=== PATIENT | female | born 2000 | race Caucasian/White ===

== ENCOUNTER → 2022-05-05 12:33 | Outpatient (CLI) | payer OTHER, SELFPAY ==
[2022-05-05 18:47] LABS: Appearance Urine UA CLEAR; Bilirubin Urine UA NEGATIVE (NEGATIVE); Color Urine UA YELLOW; Glucose Urine UA NEGATIVE (Negative); Ketones Urine UA NEGATIVE (NEGATIVE); Leukocyte Esterase Urine UA 1+ (NEGATIVE); Nitrite Urine UA NEGATIVE (Negative); Occult Blood Urine UA NEGATIVE (Negative); Protein Urine UA NEGATIVE (Negative); Specific Gravity Urine UA <=1.005 (1.000-1.035); Urobilinogen Urine UA 0.2 E.U./dL (0.2)
[2022-05-05 19:06] LABS: Bacteria Urine None Seen; Culture Indicated Urine Cult Not Indicated; RBC Urine None Seen (0-5/HPF); Squamous Epithelial Cell Urine 1-5 /HPF (0-5/HPF); WBC Urine 0-1/HPF (0-5/HPF)
== END ==
PROVIDERS: PCP Physician Assistant; Visit Provider Obstetrics & Gynecology
DX: Z34.81 Encounter for supervision of other normal pregnancy, first trimester (principal); Z3A.13 13 weeks gestation of pregnancy
CPT/HCPCS: 81003; 81015; 87086

== ENCOUNTER → 2022-05-05 12:38 | Outpatient (CLI) | payer OTHER, SELFPAY ==
[2022-05-05 13:32] LABS: Add Manual Diff / Slide Review NO; Basophils Absolute Auto 0 /uL (0-100); Basophils Percent Auto 0.2 % (0-2); Eosinophils Absolute Auto 0 /uL (0-450); Eosinophils Percent Auto 0.4 % (2-4); Hematocrit 40.9 % (36-46); Hemoglobin 14.3 g/dL (12.0-16.0); Lymphocytes Absolute Auto 1300 /uL (1100-4500); Lymphocytes Percent Auto 15.8 % (25-40); Mean Corpuscular Hemoglobin 31.8 PG (26-34); Mean Corpuscular Volume 91.1 fL (80-100); Monocytes Absolute Auto 400 /uL (0-900); Monocytes Percent Auto 4.9 % (3-14); Neutrophils Absolute Auto 6700 /uL (1500-7000); Neutrophils Percent Auto 78.7 % (50-75); Platelet Count 279 X10^3/uL (150-400); Red Blood Cell Count 4.49 X10^6/uL (4.0-5.2); Red Cell Distribution Width 12.6 % (11.6-14.8); White Blood Cell Count 8.5 X10^3/uL (4.5-11.0)
[2022-05-05 17:26] LABS: HIV 1 & 2 Ab/Ag 4th Gen Combo NEGATIVE (NEGATIVE); Hep C Virus Ab w/Reflex Quant NEGATIVE s/c (NEGATIVE); Hepatitis B Surface Antigen NEGATIVE s/c (NEGATIVE); Rubella Antibody IgG 41.7 IU/mL (>15)
[2022-05-06 07:03] LABS: RPR Screen Non Reactive (Non Reactive)
[2022-05-06 07:08] LABS: Varicella IgG Antibody 378 index (Immune >165)
== END ==
PROVIDERS: PCP Physician Assistant; Referring Provider Obstetrics & Gynecology; Visit Provider Obstetrics & Gynecology
DX: Z34.81 Encounter for supervision of other normal pregnancy, first trimester (principal); Z3A.13 13 weeks gestation of pregnancy
CPT/HCPCS: 36415; 80055; 81003; 81015; 86787; 86803; 86850; 86900; 86901; 87086; 87389

== ENCOUNTER → 2022-05-26 10:08 | Outpatient (CLI) | payer OTHER, SELFPAY ==
[2022-05-30 12:09] LABS: AFP Value 20.1 ng/mL (.); Insulin Dep Diabetes No (.); OSBR Risk 1IN 10000 (.); Results Report (.); Test Results *Screen Negative* (.)
== END ==
PROVIDERS: PCP Physician Assistant; Referring Provider Obstetrics & Gynecology; Visit Provider Obstetrics & Gynecology
DX: Z34.82 Encounter for supervision of other normal pregnancy, second trimester (principal); Z3A.16 16 weeks gestation of pregnancy
CPT/HCPCS: 36415; 82105

== ENCOUNTER → 2022-06-23 09:35 | Outpatient (CLI) | payer OTHER, SELFPAY ==
[2022-06-23 18:27] LABS: Urine N gonorrhoeae NOT DETECTED
[2022-06-23 18:30] LABS: Urine Chlamydia NOT DETECTED
== END ==
PROVIDERS: PCP Physician Assistant; Visit Provider Obstetrics & Gynecology
DX: Z34.82 Encounter for supervision of other normal pregnancy, second trimester (principal); Z3A.20 20 weeks gestation of pregnancy
CPT/HCPCS: 87491; 87591

== ENCOUNTER → 2022-06-23 12:12 | Outpatient (CLI) | payer OTHER, SELFPAY ==
--- NOTE | 2022-06-23 12:13 | DI.US.S_ITS ---
PROCEDURE: US OB >= 14 WEEKS FETUS INDICATIONS: ANATOMY OUTSIDE/PRIOR DATING DATA: Last menstrual period (LMP): 02/03/2022. LMP-based estimated date of delivery (ROD): 11/10/2022. First dating scan (date and location): 06/23/2022. Estimated date of delivery (ROD) from first dating scan: 11/14/22.. The calculations are made using the LMP ROD of 11/10/2022. TECHNIQUE: Real-time scanning was performed of the fetus, with image documentation and biometric measurements. COMPARISON: None. FINDINGS: General: A single living intrauterine gestation is present. Presentation: Vertex. Placenta: Placental position is anterior , without previa. Amniotic fluid index: 16.7 cm, normal range is 5-24 cm. Single deepest vertical pocket is 4.8 cm. heart rate: 143 beats per minute. Maternal cervical canal: 3.1 cm long. Normal lower limit is 2.5 cm. biometrics: Biparietal diameter: 4.3 cm. 19 weeks 0 days. Head circumference: 16.7 cm. 19 weeks 3 days. Abdominal circumference: 14.4 cm. 19 weeks 5 days. Femur length: 3.0 cm. 19 weeks 2 days. Clinically estimated gestational age: 20 weeks 0 days. Composite gestational age from present scan: 19 weeks 3 days. Estimated weight and percentile: 296 g. 28th percentile. Anatomic survey: Neuro: Ventricles are non-dilated at less than 10 mm. Cisterna magna is normal at 3-11 mm. Cerebellum is normal in size and morphology. Nuchal skin fold: Normal at less than 6 mm between 14-21 weeks gestational age. Face: Nose and lips, facial profile are normal. Spine: No evidence for spina bifida. Heart: 4-chambered heart is present, with normal ventricular outflow tracts. Diaphragm: Diaphragm is intact. Stomach: Left-sided stomach is present. Kidneys: No hydronephrosis. Normal is less than 5 mm in 2nd trimester, less than 7 mm in 3rd trimester. Cord: 3-vessel cord has orthotopic insertion. Bladder: Normal in size. Extremities: All 4 extremities identified. IMPRESSION: 1. Single living intrauterine with an estimated delivery date of 11/10/2022 by LMP. 2. facial profile is not seen due to lie, otherwise visualized anatomy is normal. We strive to produce accurate, complete, and clear reports of imaging services. To assist us in improving patient care, this report was composed using standard report templates and voice recognition software. Therefore, it may contain abnormal punctuation, insertions and/or omissions. Occasional wrong-word or sound-alike substitutions may occur. Though we review the report and make efforts to correct it, we do recommend that the report be read carefully in proper context to recognize any text inaccuracies. Dictated by: Sorin Spann M.D. on 06/23/2022 at 15:09 Approved by: Sorin Spann M.D. on 06/23/2022 at 15:13
== END ==
PROVIDERS: PCP Physician Assistant; Referring Provider Obstetrics & Gynecology; Visit Provider Obstetrics & Gynecology
DX: Z34.82 Encounter for supervision of other normal pregnancy, second trimester (principal); Z3A.19 19 weeks gestation of pregnancy
CPT/HCPCS: 76811; 87491; 87591

== ENCOUNTER → 2022-07-21 09:20 | Outpatient (CLI) | payer OTHER, SELFPAY ==
[2022-07-21 10:33] LABS: Add Manual Diff / Slide Review NO; Basophils Absolute Auto 0 /uL (0-100); Basophils Percent Auto 0.5 % (0-2); Eosinophils Absolute Auto 100 /uL (0-450); Eosinophils Percent Auto 1.1 % (2-4); Hematocrit 35.4 % (36-46); Hemoglobin 12.4 g/dL (12.0-16.0); Lymphocytes Absolute Auto 1500 /uL (1100-4500); Lymphocytes Percent Auto 16.2 % (25-40); Mean Corpuscular HGB Conc 34.9 % (30-36); Mean Corpuscular Hemoglobin 32.9 PG (26-34); Monocytes Absolute Auto 600 /uL (0-900); Monocytes Percent Auto 6.6 % (3-14); Neutrophils Absolute Auto 7200 /uL (1500-7000); Neutrophils Percent Auto 75.6 % (50-75); Platelet Count 274 X10^3/uL (150-400); Red Blood Cell Count 3.77 X10^6/uL (4.0-5.2); Red Cell Distribution Width 13.2 % (11.6-14.8); White Blood Cell Count 9.5 X10^3/uL (4.5-11.0)
[2022-07-21 10:55] LABS: Alanine Aminotransferase 16 IU/L (<35); Aspartate Aminotransferase 19 IU/L (14-36); BUN Creatinine Ratio 20.7 (6-22); Blood Urea Nitrogen 12 mg/dL (7-17); Estimated Glomerular Filt Rate > 60 mL/min (>60); Uric Acid 4.6 mg/dL (2.5-6.2)
== END ==
PROVIDERS: PCP Physician Assistant; Referring Provider Specialist; Visit Provider Specialist
DX: O16.2 Unspecified maternal hypertension, second trimester (principal)
CPT/HCPCS: 82565; 84450; 84460; 84520; 84550; 85025

== ENCOUNTER → 2022-07-28 12:09 | Outpatient (CLI) | payer OTHER, SELFPAY ==
[2022-07-28 13:57] LABS: GTT (PREG) 1 Hour PP 50gm Dose 107 mg/dL (76-139)
== END ==
PROVIDERS: PCP Physician Assistant; Referring Provider Specialist; Visit Provider Specialist
DX: Z34.82 Encounter for supervision of other normal pregnancy, second trimester (principal); Z3A.26 26 weeks gestation of pregnancy
CPT/HCPCS: 36415; 82950

== ENCOUNTER 2022-08-18 16:52 | Outpatient (CLI) | payer OTHER, SELFPAY ==
--- NOTE | 2022-08-18 17:41 | DI.US.S_ITS ---
PROCEDURE: US TRANSVAGINAL INDICATIONS: us cvx TECHNIQUE: Real-time scanning was performed of the pelvic organs, with image documentation. Additional endovaginal scanning was necessary due to incomplete visualization of the adnexal and endometrial structures by transabdominal scanning. COMPARISON: [facility], US, US OB >= 14 WEEKS FETUS, 06/23/2022, 12:24. FINDINGS: Limited ultrasound examination of pelvis shows cervix measures 2.7-2.8 cm in length and is closed. No funneling is seen. IMPRESSION: Limited evaluation of cervix shows normal cervical length and is closed. No funneling is seen. We strive to produce accurate, complete, and clear reports of imaging services. To assist us in improving patient care, this report was composed using standard report templates and voice recognition software. Therefore, it may contain abnormal punctuation, insertions and/or omissions. Occasional wrong-word or sound-alike substitutions may occur. Though we review the report and make efforts to correct it, we do recommend that the report be read carefully in proper context to recognize any text inaccuracies. Dictated by: Sacha Locke M.D. on 08/19/2022 at 10:14 Approved by: Sacha Locke M.D. on 08/19/2022 at 10:16
[2022-08-18 18:33] LABS: Bilirubin Urine UA NEGATIVE (NEGATIVE); Color Urine UA YELLOW; Glucose Urine UA NEGATIVE (Negative); Ketones Urine UA NEGATIVE (NEGATIVE); Leukocyte Esterase Urine UA 3+ (NEGATIVE); Nitrite Urine UA NEGATIVE (Negative); Occult Blood Urine UA NEGATIVE (Negative); Protein Urine UA NEGATIVE (Negative); Urobilinogen Urine UA 0.2 E.U./dL (0.2)
[2022-08-18 18:36] LABS: Appearance Urine UA Cloudy; pH Urine UA 6.5 (4.5-8.0)
--- NOTE | 2022-08-18 18:42 | P.TNLD_ITS ---
Visit Information Visit Information Date of evaluation: 08/18/22 Primary OB Provider: Tito Gardiner On-call OB Provider: Nellie Ríos Reason for Evaluation: Yes other Comments/Additional reasons for admission: 22YO @ 28wks 0days by LMP concordant w/ early US presents for evaluation of cramping x 2 weeks and possible leaking for fluid. +FM. No vaginal bleeding, abnormal discharge, pain, irritation or foul odor. Routine care w/ for which she reports she is on light bed rest for labile BPs. Takes a LDASA for Hx of gestational hypertension. Otherwise no complications. 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 Ovarian cyst (~2016) Panic attack PTSD (post-traumatic stress disorder) (~2015) Surgical History Anesthesia H/O dilation and curettage History of tonsillectomy and adenoidectomy (~2013) [place] teeth extracted Family History Mother Pre-invasive breast cancer Family/Other Breast cancer Grandmother Breast cancer Grandfather Throat cancer Granddaughter Colon cancer Grandfather Hypertension Hyperlipidemia Heart disease Drug abuse Social History marital status: number of children: 1 household members: spouse and children lives independently: Yes caregiver/support person: Yes housing: house pets and animals: No education level: college (some college) occupational status: unemployed current occupational exposures/hazards: No special willis needs: No travel history: recent (Domestic only) seatbelt use: always water heater temp set < 120 deg: Yes working smoke detector in home: Yes fire extinguisher in home: Yes firearms in home: No do you feel safe at home: Yes Smoking Status: Former smoker (cigarettes x3 years, vaped 2021 (quit October, then nicotine packets until and quit those)) Tobacco: How many years used: 4 second hand exposure: No alcohol intake: former (1-2/week when not ) substance use type: does not use during the past year weight has: remained stable well-balanced diet: rarely or never daily servings fruits/ve-1 caffeine: No Type(s) of exercise: none Review of Systems Review of Systems ROS: Yes All systems reviewed with the patient and are negative except as otherwise documented Exam Vital Signs (past 8 hours): see above Const General: cooperative, healthy appearing, comfortable and well developed Nutritional Appearance: average body habitus Orientation: alert and oriented x3 Resp Effort & Inspection: normal respiratory effort and able to speak in complete sentences Cardio Rate: regular rate Rhythm: regular rhythm Objective Imaging OB US >14wks Limited: My impression: CL 2.8-2.9cm, no funneling- reported by US tech ( CL 3.1cm @ 20wks) Labs Labs: Laboratory Results - last 24 hr 08/18/22 17:00 Urine Color Yellow Urine Appearance Cloudy Urine pH 6.5 Ur Specific Gordon 1.010 Urine Protein Negative Urine Glucose (UA) Negative Urine Ketones Negative Urine Occult Blood Negative Urine Nitrate Negative Urine Bilirubin Negative Urine Urobilinogen 0.2 Ur Leukocyte Esterase 3+ H Evaluation Evaluation Baseline heart rate: 145 Variability: Moderate (11-25) monitor accelerations: Present Monitor Decelerations: Absent Contraction Frequency (minutes): 0 Uterine Contraction Intensity: Mild Non-invasive Membranes Rupture Test: negative Diagnosis, Plan/Disposition Final Diagnosis (1) False labor before 37 completed weeks of gestation: Status: Acute Plan/Disposition Plan: Reassurance of no labor or PPROM. Encouraged home comfort measures. labor precautions reviewed. Follow-up with next week as previously scheduled. OB Disposition: home
[2022-08-18 18:48] LABS: RBC Urine None Seen (0-5/HPF); WBC Urine 10-30/HPF (0-5/HPF)
[2022-08-18 18:49] LABS: Bacteria Urine Moderate (10-30); Culture Indicated Urine Specimen Cultured; Squamous Epithelial Cell Urine 10-30 /HPF (0-5/HPF)
== END 2022-08-18 18:30 | disposition home or self-care (01) ==
LOC: LABOR 17:13 → OB 08-22 15:51
PROVIDERS: Nurse Practitioner Obstetrics & Gynecology; PCP Physician Assistant; Referring Provider Obstetrics & Gynecology; Visit Provider Obstetrics & Gynecology
DX: Z03.71 Encounter for suspected problem with amniotic cavity and membrane ruled out (principal); O47.03 False labor before 37 completed weeks of gestation, third trimester; Z3A.28 28 weeks gestation of pregnancy
CPT/HCPCS: 59025; 76830; 81003; 81015; 84112; 87086; G0378; G0379

== ENCOUNTER → 2022-09-15 09:44 | Outpatient (CLI) | payer OTHER, SELFPAY | PROVIDERS: PCP Physician Assistant; Visit Provider Obstetrics & Gynecology | DX: Z34.83 Encounter for supervision of other normal pregnancy, third trimester; Z3A.32 32 weeks gestation of pregnancy | CPT/HCPCS: 87086 ==

== ENCOUNTER 2022-09-23 15:24 | Outpatient (CLI) | payer OTHER, SELFPAY ==
--- NOTE | 2022-09-23 16:48 | PM.OBTRLD ---
Visit Information Visit Information Date of evaluation: 09/23/22 Primary OB Provider: Tito Gardiner On-call OB Provider: Nuvia Sidhu Comments/Additional reasons for admission: 22yo at 33w1d here due to cramping and concerns for ROM. The pt reports that she has had watery diarrhea for the past several days. She has had intermittent abdominal cramping for the past 2 days, that radiates to her back and then extends up her back to her shoulders. Earlier today, she had a sharper, diffuse abdominal pain. The diarrhea has been persistent. She denies any nausea or vomiting. She continues to eat and stay hydrated. She does report that her BMs are more solid today. She denies any fevers or chills. She has had no sick exposures, and her child is not in daycare or in school. She has not been on any antibiotics recently. Earlier today, she felt a gush between her legs. She has not continued to leak significantly since then. She does state she has had increased discharge recently in general, that can be clumping at times. She denies any vaginal irritation, dysuria. 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 Ovarian cyst (~2016) Panic attack PTSD (post-traumatic stress disorder) (~2015) Surgical History Anesthesia H/O dilation and curettage History of tonsillectomy and adenoidectomy (~2013) [place] teeth extracted Family History Mother Pre-invasive breast cancer Family/Other Breast cancer Grandmother Breast cancer Grandfather Throat cancer Granddaughter Colon cancer Grandfather Hypertension Hyperlipidemia Heart disease Drug abuse Social History marital status: number of children: 1 household members: spouse and children lives independently: Yes caregiver/support person: Yes housing: house pets and animals: No education level: college (some college) occupational status: unemployed current occupational exposures/hazards: No special willis needs: No travel history: recent (Domestic only) seatbelt use: always water heater temp set < 120 deg: Yes working smoke detector in home: Yes fire extinguisher in home: Yes firearms in home: No do you feel safe at home: Yes Smoking Status: Former smoker (cigarettes x3 years, vaped 2021 (quit October, then nicotine packets until and quit those)) Tobacco: How many years used: 4 second hand exposure: No alcohol intake: former (1-2/week when not ) substance use type: does not use during the past year weight has: remained stable well-balanced diet: rarely or never daily servings fruits/ve-1 caffeine: No Type(s) of exercise: none Evaluation Evaluation Baseline heart rate: 130 Variability: Moderate (11-25) monitor accelerations: Present Monitor Decelerations: Absent Category of Tracing: Reactive Diagnosis, Plan/Disposition Final Diagnosis (1) Diarrhea: Status: Acute Plan/Disposition Plan: 22yo at 33w1d here due to cramping and with concerns for ROM, in the setting of recent diarrhea. Amniosure negative. U/A without evidence infection. Wet mount negative. Suspect cramping from mild dehydration from diarrhea. No contractions seen on monitoring here, and pt able to tolerate copious water PO while in L&D. Stools are already beginning to form, suspect viral gastroenteritis. Discussed supportive care at home. Pt will contact the office if stools not continuing to solidify. OB Disposition: home
[2022-09-23 17:19] LABS: Appearance Urine UA CLEAR; Bilirubin Urine UA NEGATIVE (NEGATIVE); Color Urine UA YELLOW; Glucose Urine UA NEGATIVE (Negative); Ketones Urine UA NEGATIVE (NEGATIVE); Leukocyte Esterase Urine UA 2+ (NEGATIVE); Nitrite Urine UA NEGATIVE (Negative); Occult Blood Urine UA NEGATIVE (Negative); Protein Urine UA NEGATIVE (Negative); Specific Gravity Urine UA 1.015 (1.000-1.035); Urobilinogen Urine UA 0.2 E.U./dL (0.2)
[2022-09-23 17:26] LABS: Bacteria Urine Few (2-10); Culture Indicated Urine Specimen Cultured; RBC Urine None Seen (0-5/HPF); Squamous Epithelial Cell Urine 1-5 /HPF (0-5/HPF); WBC Urine 5-10/HPF (0-5/HPF)
== END 2022-09-23 17:25 | disposition home or self-care (01) ==
LOC: LABOR 16:52 → OB 09-26 11:22
PROVIDERS: Family Medicine; PCP Physician Assistant; Referring Provider Obstetrics & Gynecology; Visit Provider Obstetrics & Gynecology
DX: Z03.71 Encounter for suspected problem with amniotic cavity and membrane ruled out (principal); O26.893 Other specified pregnancy related conditions, third trimester; R19.7 Diarrhea, unspecified; Z3A.33 33 weeks gestation of pregnancy
CPT/HCPCS: 59025; 81001; 84112; 87086; 87210; G0378; G0379

== ENCOUNTER → 2022-10-14 12:12 | Outpatient (CLI) | payer OTHER, SELFPAY ==
[2022-10-15 11:10] LABS: Strep Grp B PCR NEG for Grp B Strep
== END ==
PROVIDERS: PCP Physician Assistant; Visit Provider Physician Assistant Medical
DX: Z34.83 Encounter for supervision of other normal pregnancy, third trimester (principal); Z3A.36 36 weeks gestation of pregnancy
CPT/HCPCS: 87653

== ENCOUNTER → 2022-10-19 09:24 | Outpatient (CLI) | payer OTHER, SELFPAY | PROVIDERS: PCP Physician Assistant; Visit Provider Obstetrics & Gynecology | DX: R82.90 Unspecified abnormal findings in urine (principal) | CPT/HCPCS: 87086 ==

== ENCOUNTER 2022-10-31 21:11 | Observation (INO) | payer OTHER, SELFPAY | END 2022-10-31 21:50 | disposition home or self-care (01) | LOC: LABOR 21:14 | PROVIDERS: Admitting Provider Family Medicine; PCP Physician Assistant; Referring Provider Family Medicine; Visit Provider Family Medicine | DX: O47.1 False labor at or after 37 completed weeks of gestation (principal); Z3A.38 38 weeks gestation of pregnancy | CPT/HCPCS: 59025; G0378; G0379 ==

== ENCOUNTER 2022-11-03 06:57 | Inpatient (IN) | payer OTHER, SELFPAY ==
[2022-11-03 08:15] VITALS: BP 119/60
[2022-11-03] MEDS: OXYTOCIN PREMIX 30 UNIT/500 ML PLAST..BAG IV (08:33)
[2022-11-03] MEDS: LACTATED RINGERS 1,000 ML 100 ML IV ×2 (08:33→11:25)
[2022-11-03 09:08] LABS: Add Manual Diff / Slide Review NO; Basophils Absolute Auto 100 /uL (0-100); Basophils Percent Auto 0.7 % (0-2); Eosinophils Absolute Auto 100 /uL (0-450); Eosinophils Percent Auto 1.1 % (2-4); Hemoglobin 12.6 g/dL (12.0-16.0); Lymphocytes Absolute Auto 1900 /uL (1100-4500); Lymphocytes Percent Auto 23.9 % (25-40); Mean Corpuscular HGB Conc 34.9 % (30-36); Mean Corpuscular Volume 94.8 fL (80-100); Monocytes Absolute Auto 700 /uL (0-900); Monocytes Percent Auto 8.6 % (3-14); Neutrophils Absolute Auto 5100 /uL (1500-7000); Neutrophils Percent Auto 65.7 % (50-75); Platelet Count 209 X10^3/uL (150-400); Red Cell Distribution Width 14.3 % (11.6-14.8); White Blood Cell Count 7.8 X10^3/uL (4.5-11.0)
--- NOTE | 2022-11-03 09:16 | P.HPOB_ITS ---
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 Although she had gestational hypertension with her 1st , this has been uneventful with solid dating and appropriate milestones throughout. She has a history of oral HSV and has been taking acyclovir 400 mg t.i.d. since 36 weeks. She is GBS negative. Indications Indication for induction OB: other (Social indications, spousal availability) History of Present care: good care Dating criteria: LMP confirmed by 1st trimester US Ultrasounds: normal 1st trimester US and normal mid trimester US Obstetrical complications: none Medical complications: none Preadmission Labs Blood type: A (+) positive -: Antibody screen: negative, GBS status: negative, HBsAG: negative, HIV: negative and RPR/VDLR: negative -: Chlamydia screen: not detected and Gonorrhea screen: not detected -: Rubella: immune and Varicella: immune HCT: 36.0 HCAB: negative PAP: Normal Quad screen: Normal (AFP testing negative) Cell-free DNA: Low risk female infant Fasting blood glucose: 107 Prior (ies) History: x 1 Evaluation Evaluation Baseline heart rate: 135 Variability: Moderate (11-25) monitor accelerations: Present Monitor Decelerations: Absent Contraction Frequency (minutes): 5 Uterine Contraction Intensity: Mild Category of Tracing: Reactive Status: Category l Dilation (cm): 3 Effacement (%): 80 Dilation: 3-4 cm Effacement: >/=80% station: -1 Position of cervix: mid Consistency: soft Quintanilla score: 10 Non-invasive Membranes Rupture Test: negative Comments: AROM performed, clear fluid, 0925 [facility] Medical History ADHD Ankle pain (~2011) Anxiety (~2013) Bipolar disorder Depression (~2013) Frequent UTI (~2013) HSV-1 infection Migraine without aura (~2020) 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 Ovarian cyst (~2016) Panic attack PTSD (post-traumatic stress disorder) (~2015) Surgical History Anesthesia H/O dilation and curettage History of tonsillectomy and adenoidectomy (~2013) [place] teeth extracted Family History Mother Pre-invasive breast cancer Family/Other Breast cancer Grandmother Breast cancer Grandfather Throat cancer Granddaughter Colon cancer Grandfather Hypertension Hyperlipidemia Heart disease Drug abuse Social History marital status: number of children: 1 household members: spouse and children lives independently: Yes caregiver/support person: Yes housing: house pets and animals: No education level: college (some college) occupational status: unemployed current occupational exposures/hazards: No special willis needs: No travel history: recent (Domestic only) seatbelt use: always water heater temp set < 120 deg: Yes working smoke detector in home: Yes fire extinguisher in home: Yes firearms in home: No do you feel safe at home: Yes Smoking Status: Never smoker Tobacco: How many years used: 4 second hand exposure: No alcohol intake: former (1-2/week when not ) substance use type: does not use during the past year weight has: remained stable well-balanced diet: rarely or never daily servings fruits/ve-1 caffeine: No Type(s) of exercise: none Meds Home Medications and Allergies Home Medications Medication Instructions Recorded Confirmed Type amitriptyline 25 mg tablet 25 mg PO DAILY 04/06/22 11/03/22 History folic acid 400 mcg tablet 0.4 mg PO DAILY 04/06/22 11/03/22 History prenat.vits,roberto,qpg-sbun-hsiwp 1 tab PO DAILY 04/06/22 11/03/22 History promethazine 25 mg tablet 25 mg PO TID PRN migraines 04/06/22 11/03/22 History sumatriptan succinate 50 mg tablet See Rx Instructions PO .COMPLEX 04/19/22 11/03/22 Rx #20 tabs metronidazole 0.75 % (37.5 mg/5 1 appful vaginal BEDTIME 5 days 07/28/22 11/03/22 Rx gram) vaginal gel #70 grams hydroxyzine HCl 50 mg tablet 50 mg PO BID PRN anxiety #30 tabs 08/18/22 11/03/22 Rx omeprazole 40 mg capsule,delayed 40 mg PO DAILY #30 caps 08/18/22 11/03/22 Rx release sertraline 50 mg tablet (Zoloft) 50 mg PO DAILY #30 tabs 08/18/22 11/03/22 Rx acyclovir 400 mg tablet 400 mg PO TID 5 days #15 tabs 09/07/22 11/03/22 Rx nifedipine 60 mg tablet,extended 60 mg PO DAILY #30 tabs 09/29/22 11/03/22 Rx release oxycodone-acetaminophen 5 mg-325 1 tab PO Q4-6H PRN pain #20 tabs 09/29/22 11/03/22 Rx mg tablet (Percocet) Allergies Allergy/AdvReac Type Severity Reaction Status Date / Time No Known Drug Allergies Allergy Verified 11/03/22 09:42 Review of Systems Review of Systems Narrative: Problem-specific ROS positives included in HPI OB Exam Vital signs Blood Pressure: 124/68 Pulse Rate: 102 Temperature: 97.9 F HENMT Head: normal to inspection, normocephalic and atraumatic Eyes General: appearance normal, both eyes and all related structures Resp Effort & Inspection: normal respiratory effort and able to speak in complete sentences Auscultation: clear to auscultation bilaterally Cardio Rate: regular rate Rhythm: regular rhythm Heart Sounds: S1 normal, S2 normal and no murmurs Extremities Lower extremity: Yes normal to inspection GI Inspection: normal to inspection Palpation: Yes soft and Yes no hepatosplenomegaly Uterus Location (Fundal Height): 38 Presentation: vertex Estimated Weight (lbs): 8 Objective Labs 11/03/22 07:45 Labs: Laboratory Results - last 24 hr 11/03/22 07:45 WBC 7.8 RBC 3.80 L Hgb 12.6 Hct 36.0 MCV 94.8 MCH 33.0 MCHC 34.9 RDW 14.3 Plt Count 209 Neut % (Auto) 65.7 Lymph % (Auto) 23.9 L [place] % (Auto) 8.6 Eos % (Auto) 1.1 L Baso % (Auto) 0.7 Neut # (Auto) 5100 Lymph # (Auto) 1900 [place] # (Auto) 700 Eos # (Auto) 100 Baso # (Auto) 100 Assessment and Plan Assessment and Plan Assessment and Plan narrative: ASSESSMENT 1. Intrauterine , 39+ 0 weeks gestational age 2. Elective induction for social indications 3. GBS negative status PLAN 1. Admit for AROM and induction 2. See admission orders
[2022-11-03] MEDS: BUPIVACAINE EPIDURAL (11:26)
[2022-11-03] MEDS: FENTANYL 2 MCG EPIDURAL (11:26)
--- NOTE | 2022-11-03 11:51 | PM.AN.REGBLK ---
Regional Block Pre-procedure PMH/ROS narrative: , induction of labor at 39 weeks. Denies previous anesthesia problems. Had SOCO w/ 1st child w/o problems. PMH anxiety, depression and states I have a straight neck , no symptoms, no paresthesia or motor deficits. PSH/Anesthesia history narrative: See above Exam narrative: MP I, tongue piercing x 1. Dentation good, intact. Negative other symtoms review. HRR, s1/s2, no murmur, lungs clear bilat. ASA Class: II Labs: Hct 36.0 % (36-46) 11/03/22 07:45 Plt Count 209 X10^3/uL (150-400) 11/03/22 07:45 Medications: Current Medications Generic Name Dose Route Start Last Admin Trade Name Freq PRN Reason Stop Dose Admin Acyclovir 400 mg 11/03/22 10:15 Acyclovir 400 Mg Tablet PO TID DENISE Carboprost Tromethamine 250 mcg 11/03/22 08:13 Carboprost 250 Mcg/Ml Ampul IM Q90M PRN Bleeding Ephedrine Sulfate 5 mg 11/03/22 11:42 Ephedrine 50 Mg/Ml Vial IV PRN PRN Blood Pressure - Low Fentanyl 50 mcg 11/03/22 08:13 Fentanyl 100 Mcg/2 Ml Inj IV Q1H PRN Pain, Moderate (4-6) Oxytocin/Lactated Ringer's 30 unit in 500 mls @ 2 mls/hr 11/03/22 08:15 11/03/22 08:33 Oxytocin Premix IV 2 milliunit/min TITRATE DENISE 2 mls/hr Administration Protocol 2 MILLIUNIT/MIN Oxytocin/Lactated Ringer's 30 unit in 500 mls @ 200 mls/hr 11/03/22 08:13 Oxytocin Premix IV CONT PRN Bleeding Protocol Tranexamic Acid 1,000 mg/ 100 mls @ 200 mls/hr 11/03/22 08:13 Sodium Chloride IV NOW PRN Bleeding Lactated Ringer's 1,000 mls @ 100 mls/hr 11/03/22 08:15 11/03/22 11:25 Lactated Ringers IV 100 mls/hr CONT DENISE Administration Lactated Ringer's 1,000 mls @ 100 mls/hr 11/03/22 11:45 Lactated Ringers IV CONT DENISE Lidocaine HCl 20 ml 11/03/22 08:13 Lidocaine 1% 20 Ml INJ INTRA-OP PRN Post Delivery Methylergonovine Maleate 0.2 mg 11/03/22 08:13 Methylergonovine 0.2 Mg Tablet PO Q6HR PRN Heavy Bleeding Methylergonovine Maleate 0.2 mg 11/03/22 08:13 Methylergonovine 0.2 Mg/Ml Vial IM NOW PRN Bleeding Misoprostol 400 mcg 11/03/22 08:13 Misoprostol 200 Mcg Tablet SL NOW PRN Bleeding Misoprostol 800 mcg 11/03/22 08:13 Misoprostol 200 Mcg Tablet AR NOW PRN Bleeding Naloxone HCl 0.2 mg 11/03/22 08:13 Naloxone 0.4 Mg/Ml Vial IV Q2MIN PRN Opiate Reversal Naloxone HCl 0.4 mg 11/03/22 11:39 Naloxone 0.4 Mg/Ml Vial IV Q2MIN PRN Opiate Reversal Ondansetron HCl 8 mg 11/03/22 12:00 Ondansetron 4 Mg/2 Ml Inj IV Q6HR [facility] Ondansetron HCl 4 mg 11/03/22 11:39 Ondansetron 4 Mg/2 Ml Inj IV Q6HR PRN Nausea And Vomiting Oxytocin 10 unit 11/03/22 08:13 Oxytocin 10 Unit/Ml Vial IM NOW PRN Bleeding Allergies: Allergies Allergy/AdvReac Type Severity Reaction Status Date / Time No Known Drug Allergies Allergy Verified 11/03/22 09:42 Procedure Insertion date: 11/03/22 Insertion time: 11:10 Prep/Local: betadine x3 and 1% lidocaine Interspace: L3-4 Patient position: sitting Needle: 17 gauge Tuohy Loss of resistance with: saline ADINA at (cm): 8 Catheter placed at SKIN (cm): 13 Catheter in SPACE (cm): 5 Sensory level: T8 Insertion: No CSF, No Blood, No Paresthesia with insertion, No Paresthesia with injection and No Test dose reaction Initial Medications TEST DOSE time: 11:14 BOLUS DOSE time: 11:16 BOLUS DOSE (mL): 10 BOLUS DOSE med: 0.25% bupivacaine (Fentanyl 100mcg) Infusion INFUSION: 0.125% bupivacaine and with fentanyl 2 mcg/mL Initial rate (mL/hr): 10 Post-procedure Anesthesia time START: 10:50
[2022-11-03] MEDS: ACYCLOVIR 400 MG TABLET PO ×3 (12:00→20:40)
[2022-11-03 12:51] VITALS: BP 124/68; PULSE 102; TEMP 36.6
--- NOTE | 2022-11-03 13:19 | P.PCNOB_ITS ---
Labor & Delivery Delivery date: 11/03/22 Intrapartal Events: None Cervical ripening method: none Induction method: per pitocin protocol Delivery augmentation: rupture of membranes Delivery monitor: external FHT and external uterine Route of delivery: Episiotomy description: None L&D Laceration Description: Labial (Bilateral, superficial, no repair required) Estimated blood loss (mL): 200 Anesthesia Type: Epidural Complications: None Narrative: Following a brief 2nd stage, the patient pushed vigorously and delivered spontaneously over an intact perineum a viable female infant. A loose nuchal cord was noted and reduced prior to delivery of the shoulders. No shoulder dystocia was encountered. Upon delivery, skin to skin contact was initiated immediately and delayed cord clamping performed. Once the umbilical cord was doubly clamped and cut, a cord blood sample was obtained for routine studies. The placenta then delivered spontaneously and upon inspection was found to be intact with a central three-vessel cord insertion. Intravenous Pitocin was administered at immediately following delivery of the placenta and bleeding rapidly controlled. Inspection of the perineum showed no perineal lacerations but there was very superficial abrasions noted bilaterally in the inter-labial sulci which did not require repair. The delivery process was then completed with both mother and baby doing well. [place] Baby 1: Infant gender: Female Presentation: vertex Position: Left Occiput Anterior Placenta delivery description: Spontaneous Cord Vessel Description: 3 Vessels and Nuchal Cord (Loose x 1) score (5 min): 9 score (10 min): 9 weight: 7 lb 7.79 oz Plan for aftercare: Routine care
[2022-11-03] MEDS: METHYLERGONOVINE 0.2 MG/ML VIAL IM (14:20)
[2022-11-03] MEDS: ACETAMINOPHEN 325 MG TABLET 650 MG PO (15:57)
[2022-11-03] MEDS: IBUPROFEN 600 MG TABLET PO (15:57)
[2022-11-03] MEDS: AMITRIPTYLINE 25 MG TABLET PO (20:41)
[2022-11-03] MEDS: DOCUSATE 100 MG CAPSULE PO (20:41)
[2022-11-03] MEDS: CALCIUM CARBONATE 500 MG TAB 1000 MG PO (20:45)
[2022-11-04] MEDS: LANOLIN OINT 7 GM 1 APPLIC TOP (02:09)
[2022-11-04] MEDS: ACETAMINOPHEN 325 MG TABLET 650 MG PO (07:17)
[2022-11-04] MEDS: IBUPROFEN 600 MG TABLET PO (07:17)
--- NOTE | 2022-11-04 09:33 | P.DS_ITS ---
Discharge Providers Provider Date of admission: 11/03/22 06:57 Discharge Date: 11/04/22 Primary care physician: Pardeep Vines PA-C Consults: 11/03/22 08:13 Consult to Anesthesiology Urgent Comment: Consulting Provider: Tito Gardiner Reason for consultation: Epidural Has provider been notified: No 11/04/22 13:15 Consult to Commercial Real Estate Attorney Routine Comment: Discharge provider: Tito Gardiner MD Summary Hospital Course Date Patient Seen: 11/04/22 Time Patient Seen: 09:33 Diagnoses: Intrauterine gestation, Rodrigues, 39+ 0 weeks delivered via spontaneous vaginal History of gestational hypertension with prior Hospital Course: Aydee was admitted at 39+ 0 weeks for elective induction on the morning of 11/03/2022. Intravenous Pitocin was initiated and AROM performed. Patient received an epidural and progressed well in labor delivering early on the afternoon of 11/03/2022 a viable female infant with Apgars of 9/9 and a weight of 3396 g (7 lb 7.8 oz). Following delivery both mother and baby have done extremely well with the mother experiencing prompt return of bowel and bladder function, she is ambulating independently, tolerating regular diet, and her pain is well controlled with oral pain medications. She will be discharged at this time to home in an afebrile normotensive condition after counseling regarding precautionary symptoms, limitations of activity, medications, and plans for follow-up which will be in 6 weeks. Medications at discharge will include resumption of all pre delivery medications and she will be using [id number] Tylenol and/or ibuprofen as needed for pain relief. Patient has expressed a desire for elective sterilization and will undergo interval sterilization by laparoscopic bilateral salpingectomy which is currently being scheduled. Peripartum Data Laceration Description: Labial (Superficial, bilateral) Procedures: Continuous lumbar epidural Spontaneous vaginal complications: none 1: Gender: Female Disposition of : home Status at Discharge Cognitive/behavioral status at discharge: oriented Functional status at discharge: independent ambulation Overall status at discharge: patient is progressing back to baseline Time Spent with Patient Time attestation: Total time spent providing and/or coordinating discharge services: Time spent: Less than 30 minutes Objective Labs 11/03/22 07:45 Labs: Laboratory Results - last 24 hr 11/03/22 07:45 Blood Type A Positive Antibody Screen Negative Exam Const General: cooperative and comfortable Nutritional Appearance: average body habitus Orientation: alert and oriented x3 HENMT Head: normal to inspection, atraumatic and abrasion Ears: hearing grossly normal bilaterally Face and sinus: face symmetric Eyes General: appearance normal, both eyes and all related structures Conjunctivae: conjunctivae normal Sclera: sclerae normal EOM: EOM intact bilaterally Neck Neck: normal visual inspection Resp Effort & Inspection: normal respiratory effort and able to speak in complete sentences Auscultation: clear to auscultation bilaterally GI Inspection: normal to inspection Palpation: soft External Female Exam: other (No significant bleeding noted) Extrem General: no calf tenderness Psych Appearance: grossly normal Mental Status: mental status grossly normal Speech and Movement: speech and movement normal Mood: congruent mood Affect: normal affect Attitude: cooperative Thought Process: normal Thought Content: normal Judgment: judgment good Discharge Plan Discharge Plan Patient Disposition: Home Provider Discharge Comment: Please review the written instructions you received when you were discharged from the hospital. Your follow-up visit will be scheduled for 6 weeks after your delivery and I look forward to seeing you then. If however in the meanwhile you have any concerns, problems, or questions, please contact me either through the office phone at [phone], or via the patient portal. Discharge orders & Medications Prescriptions: Continued sumatriptan succinate 50 mg tablet See Rx Instructions PO .COMPLEX Qty: 20 3RF Rx Instructions: take 1 tab at onset of headache; if no relief may repeat 1 tab after at least 2 hrs; max = 4 tabs/24 hr PO omeprazole 40 mg capsule,delayed release(DR/EC) 40 mg PO DAILY Qty: 30 3RF sertraline [Zoloft] 50 mg tablet 50 mg PO DAILY Qty: 30 12RF hydroxyzine HCl 50 mg tablet 50 mg PO BID PRN (Reason: anxiety) Qty: 30 2RF acyclovir 400 mg tablet 400 mg PO TID 5 Days Qty: 15 6RF prenat.vits,roberto,[id number] Tablet 1 tab PO DAILY folic acid 400 mcg tablet 0.4 mg PO DAILY amitriptyline 25 mg tablet 25 mg PO DAILY promethazine 25 mg tablet 25 mg PO TID PRN (Reason: migraines) metronidazole 0.75 % (37.5mg/5 gram) gel 1 appful vaginal BEDTIME 5 Days Qty: 70 3RF nifedipine 60 mg tablet extended release 60 mg PO DAILY Qty: 30 0RF oxycodone-acetaminophen [Percocet] 5-325 mg tablet 1 tab PO Q4-6H PRN (Reason: pain) Qty: 20 0RF Follow up/Referrals: Pardeep Vines PA-C [Primary Care Provider] - Tito Gardiner MD [Physician] - Discharge Health Status Multidrug resistant organism: No MDRO Diet/Activity/Treatments Diet: Diet as Tolerated Activity: As tolerated Skin/Wound/Dressing Care Report to your healthcare provider any signs of infection, such as:: chills, fever, increased pain, unusual drainage and unusual redness Dressing: N/A Visit Report/Discharge Packet Instructions: DI for Labor and Delivery, Vaginal , DI for and Nipple Soreness Discharge Data Primary Care Provider: Pardeep Vines
[2022-11-04 10:09] VITALS: BP 123/72; PULSE 75; RESP 19; TEMP 37
[2022-11-04] MEDS: ACYCLOVIR 400 MG TABLET PO (11:48)
[2022-11-04] MEDS: DOCUSATE 100 MG CAPSULE PO (11:49)
--- NOTE | 2022-11-09 12:08 | PM.AN.REGBLK ---
Regional Block Pre-procedure PMH/ROS narrative: , induction of labor at 39 weeks. Denies previous anesthesia problems. Had SOCO w/ 1st child w/o problems. PMH anxiety, depression and states I have a straight neck , no symptoms, no paresthesia or motor deficits. PSH/Anesthesia history narrative: See above Exam narrative: MP I, tongue piercing x 1. Dentation good, intact. Negative other symtoms review. HRR, s1/s2, no murmur, lungs clear bilat. ASA Class: II Labs: Hct 36.0 % (36-46) 11/03/22 07:45 Plt Count 209 X10^3/uL (150-400) 11/03/22 07:45 Medications: Current Medications Generic Name Dose Route Start Last Admin Trade Name Freq PRN Reason Stop Dose Admin Acyclovir 400 mg 11/03/22 10:15 Acyclovir 400 Mg Tablet PO TID DENISE Carboprost Tromethamine 250 mcg 11/03/22 08:13 Carboprost 250 Mcg/Ml Ampul IM Q90M PRN Bleeding Ephedrine Sulfate 5 mg 11/03/22 11:42 Ephedrine 50 Mg/Ml Vial IV PRN PRN Blood Pressure - Low Fentanyl 50 mcg 11/03/22 08:13 Fentanyl 100 Mcg/2 Ml Inj IV Q1H PRN Pain, Moderate (4-6) Oxytocin/Lactated Ringer's 30 unit in 500 mls @ 2 mls/hr 11/03/22 08:15 11/03/22 08:33 Oxytocin Premix IV 2 milliunit/min TITRATE DENISE 2 mls/hr Administration Protocol 2 MILLIUNIT/MIN Oxytocin/Lactated Ringer's 30 unit in 500 mls @ 200 mls/hr 11/03/22 08:13 Oxytocin Premix IV CONT PRN Bleeding Protocol Tranexamic Acid 1,000 mg/ 100 mls @ 200 mls/hr 11/03/22 08:13 Sodium Chloride IV NOW PRN Bleeding Lactated Ringer's 1,000 mls @ 100 mls/hr 11/03/22 08:15 11/03/22 11:25 Lactated Ringers IV 100 mls/hr CONT DENISE Administration Lactated Ringer's 1,000 mls @ 100 mls/hr 11/03/22 11:45 Lactated Ringers IV CONT DENISE Lidocaine HCl 20 ml 11/03/22 08:13 Lidocaine 1% 20 Ml INJ INTRA-OP PRN Post Delivery Methylergonovine Maleate 0.2 mg 11/03/22 08:13 Methylergonovine 0.2 Mg Tablet PO Q6HR PRN Heavy Bleeding Methylergonovine Maleate 0.2 mg 11/03/22 08:13 Methylergonovine 0.2 Mg/Ml Vial IM NOW PRN Bleeding Misoprostol 400 mcg 11/03/22 08:13 Misoprostol 200 Mcg Tablet SL NOW PRN Bleeding Misoprostol 800 mcg 11/03/22 08:13 Misoprostol 200 Mcg Tablet SD NOW PRN Bleeding Naloxone HCl 0.2 mg 11/03/22 08:13 Naloxone 0.4 Mg/Ml Vial IV Q2MIN PRN Opiate Reversal Naloxone HCl 0.4 mg 11/03/22 11:39 Naloxone 0.4 Mg/Ml Vial IV Q2MIN PRN Opiate Reversal Ondansetron HCl 8 mg 11/03/22 12:00 Ondansetron 4 Mg/2 Ml Inj IV Q6HR DENISE Ondansetron HCl 4 mg 11/03/22 11:39 Ondansetron 4 Mg/2 Ml Inj IV Q6HR PRN Nausea And Vomiting Oxytocin 10 unit 11/03/22 08:13 Oxytocin 10 Unit/Ml Vial IM NOW PRN Bleeding Allergies: Allergies Allergy/AdvReac Type Severity Reaction Status Date / Time No Known Drug Allergies Allergy Verified 11/03/22 09:42 Procedure Insertion date: 11/03/22 Insertion time: 11:10 Prep/Local: betadine x3 and 1% lidocaine Interspace: L3-4 Patient position: sitting Needle: 17 gauge Tuohy Loss of resistance with: saline ADINA at (cm): 8 Catheter placed at SKIN (cm): 13 Catheter in SPACE (cm): 5 Sensory level: T8 Insertion: No CSF, No Blood, No Paresthesia with insertion, No Paresthesia with injection and No Test dose reaction Initial Medications TEST DOSE time: 11:14 BOLUS DOSE time: 11:16 BOLUS DOSE (mL): 10 BOLUS DOSE med: 0.25% bupivacaine (Fentanyl 100mcg) Infusion INFUSION: 0.125% bupivacaine and with fentanyl 2 mcg/mL Initial rate (mL/hr): 10 Post-procedure Anesthesia time START: 10:50 Anesthesia time END: 13:19 Post-procedure Anesthesia Assessment: Yes CV function: HR/BP stable, Yes Resp function: RR/sat/airway adequate, Yes Post-op hydration adequate, Yes Pain control adequate, Yes Nausea & vomiting absent, Yes Temperature > 36 C, Yes Mental status appropriate and Yes Anesthesia complications
== END 2022-11-04 13:00 | disposition home or self-care (01) | DRG 807 ==
PROVIDERS: Admitting Provider Obstetrics & Gynecology; PCP Physician Assistant; Referring Provider Obstetrics & Gynecology; Visit Provider Obstetrics & Gynecology
DX: O98.52 Other viral diseases complicating childbirth (principal); Z37.0 Single live birth; B00.9 Herpesviral infection, unspecified; Z3A.39 39 weeks gestation of pregnancy
CPT/HCPCS: 36415; 59050; 59400; 85025; 86850; 86900; 86901; G0379; J2210; J2590

== ENCOUNTER 2023-02-24 08:41 | Day surgery (SDC) | payer OTHER, SELFPAY ==
--- NOTE | 2023-02-24 | PATH_ITS ---
[facility] Accession Number: [id number] No. of containers..03 Tissue . 01 Material submitted: . PART A: fallopian tube - BILATERAL FALLOPIAN TUBES PART B: endocervix - ENDOCERVICAL CURETTINGS PART C: endometrium - ENDOMETRIAL CURETTINGS . 01 Diagnosis: A. Bilateral Fallopian Tubes, Bilateral Salpingectomy: Cross-sections of bilateral fallopian tubes with features of hydrosalpinx. Negative for dysplasia and malignancy. . B. Endocervix, Curettage: Predominantly mucoinflammatory debris with mostly fragments of benign appearing endometrial glandular epithelium and rare strips of benign endocervical cells. . C. Endometrium, Curettage: Inflamed nonproliferative endometrium with features of chronic endometritis and evidence of breakdown. Fragments of placenta site nodule. No evidence of endometrioid intraepithelial neoplasia or malignancy. [facility] 03/08/2023 1322 Local . 01 Electronically signed: . Cheri Pena MD, Pathologist NPI- [id number] . 01 Gross description: . A. Received in formalin labeled with the patient's name, and bilateral fallopian tubes, consists of two unoriented fallopian tubes. The first is intact and measures 5.6 x 0.5 cm while the second is fragmented and reapproximates to measure 6.2 x 0.7 cm. The serosa of both tubes is violaceous and smooth with no cystic structures identified. Sectioning reveals unremarkable stellate lumens. Glass Curvature Gauger sections to include one-half of bisected fimbria and cross sections are submitted as follows: A1: Intact fallopian tube. A2: Fragmented fallopian tube. B. Received in formalin labeled with the patient's name, and endocervical curettings, consist of multiple mcclain soft tissue fragments admixed with mucoid material aggregating to 2.2 x 2.0 x 0.3 cm. Filtered and submitted entirely in cassette B1. C. Received in formalin labeled with the patient's name, and endometrial curetting, consists om multiple red-brown soft tissue fragments admixed with hemorrhagic material aggregating to 1.7 x 1.7 x 0.1 cm. Filtered and submitted entirely in cassette C1. ([id number]) /MRV 02/28/2023 [facility]2 Local . 01 Pathologist provided ICD-10: N93.9 . 01 CPT . 849311, 556068, [id number] Specimen Comment: A courtesy copy of this report has been sent to [phone] Performed at: 01 [facility] [address] [place] [address], [place], [place] [id number] MD Dioni Reyna MD Phone: [phone]
[2023-02-24 08:51] VITALS: BP 118/82; PULSE 90; RESP 16; TEMP 37; O2SAT 100; BMI 27.4
--- NOTE | 2023-02-24 08:56 | P.HPOB_ITS ---
History of Present Illness History of Present Illness Reason for admission: other (Elective sterilization) Narrative: Aydee Saul is a 22 year old s/p 10/2022 who is admitted for elective sterilization via laparoscopic bilateral salpingectomy. [facility] Medical History ADHD Ankle pain (~2011) Anxiety (~2013) Bipolar disorder Depression (~2013) Frequent UTI (~2013) HSV-1 infection Migraine without aura (~2020) 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 Ovarian cyst (~2016) Panic attack PTSD (post-traumatic stress disorder) (~2015) Surgical History Anesthesia H/O dilation and curettage History of tonsillectomy and adenoidectomy (~2013) [place] teeth extracted Family History Mother Pre-invasive breast cancer Family/Other Breast cancer Grandmother Breast cancer Grandfather Throat cancer Granddaughter Colon cancer Grandfather Hypertension Hyperlipidemia Heart disease Drug abuse Social History marital status: number of children: 1 household members: spouse and children lives independently: Yes caregiver/support person: Yes housing: house pets and animals: No education level: college (some college) occupational status: unemployed current occupational exposures/hazards: No special willis needs: No travel history: recent (Domestic only) seatbelt use: always water heater temp set < 120 deg: Yes working smoke detector in home: Yes fire extinguisher in home: Yes firearms in home: No do you feel safe at home: Yes Smoking Status: Never smoker Tobacco: How many years used: 4 second hand exposure: No alcohol intake: former substance use type: does not use during the past year weight has: remained stable well-balanced diet: rarely or never daily servings fruits/ve-1 caffeine: No Type(s) of exercise: none Meds Home Medications and Allergies Home Medications Medication Instructions Recorded Confirmed Type amitriptyline 25 mg tablet 25 mg PO DAILY 04/06/22 11/03/22 History folic acid 400 mcg tablet 0.4 mg PO DAILY 04/06/22 11/03/22 History prenat.vits,roberto,[id number] 1 tab PO DAILY 04/06/22 11/03/22 History promethazine 25 mg tablet 25 mg PO TID PRN migraines 04/06/22 11/03/22 History sumatriptan succinate 50 mg tablet See Rx Instructions PO .COMPLEX 04/19/22 06/01/28 Rx #20 tabs metronidazole 0.75 % (37.5 mg/5 1 appful vaginal BEDTIME 5 days 07/28/22 11/03/22 Rx gram) vaginal gel #70 grams hydroxyzine HCl 50 mg tablet 50 mg PO BID PRN anxiety #30 tabs 08/18/22 11/03/22 Rx omeprazole 40 mg capsule,delayed 40 mg PO DAILY #30 caps 08/18/22 11/03/22 Rx release sertraline 50 mg tablet (Zoloft) 50 mg PO DAILY #30 tabs 08/18/22 11/03/22 Rx acyclovir 400 mg tablet 400 mg PO TID 5 days #15 tabs 09/07/22 11/03/22 Rx Allergies Allergy/AdvReac Type Severity Reaction Status Date / Time No Known Drug Allergies Allergy Verified 12/15/22 09:48 Review of Systems Review of Systems Narrative: Problem-specific ROS positives included in HPI Exam Const General: cooperative and comfortable Nutritional Appearance: average body habitus Orientation: alert and oriented x3 HENMT Head: normal to inspection, atraumatic and abrasion Ears: hearing grossly normal bilaterally Face and sinus: face symmetric Eyes General: appearance normal, both eyes and all related structures Conjunctivae: conjunctivae normal Sclera: sclerae normal EOM: EOM intact bilaterally Neck Neck: normal visual inspection Resp Effort & Inspection: normal respiratory effort and able to speak in complete sentences Auscultation: clear to auscultation bilaterally Cardio Rate: regular rate Rhythm: regular rhythm Heart Sounds: S1 normal, S2 normal and no murmurs GI Inspection: normal to inspection Palpation: soft, no hepatosplenomegaly and No tender External Female Exam: other (Deferred) Extrem General: no calf tenderness Psych Appearance: grossly normal Mental Status: mental status grossly normal Speech and Movement: speech and movement normal Mood: congruent mood Affect: normal affect Attitude: cooperative Thought Process: normal Thought Content: normal Judgment: judgment good Assessment & Plan Assessment and plan (1) Request for sterilization: Status: Acute Plan Patient counseled regarding alternatives, risks, benefits, and potential complications associated with laparoscopic bilateral salpingectomy. Patient has been counseled this is a procedure will make it permanently and irreversibly unable for her to bear children without benefit of assisted reproductive technology. She also understands that this procedure can fail to prevent (1-06/999) and that should such a occur the likelihood of ec topic gestation is high. With full understanding of the above, a written consent was executed, signed, and witnessed this date. Assessment & Plan narrative: ASSESSMENT Request for elective sterilization PLAN Admit for laparoscopic bilateral salpingectomy Time Spent With Patient Time with patient: less than 30 minutes
--- NOTE | 2023-02-24 08:56 | PM.PREOP ---
Pre-operative Note COVID-19 COVID-19 status: Not tested Interval Note History & Physical reviewed/Exam performed by Physician: Yes Changes to H&P: No
[2023-02-24] MEDS: LACTATED RINGERS 1,000 ML 42 ML IV ×2 (09:14→10:41)
[2023-02-24] MEDS: SCOPOLAMINE 1 PATCH TOP (09:39)
--- NOTE | 2023-02-24 10:28 | SUR.OPER ---
Lithotomy on padded OR bed, head on pillow, arms secured on padded arm boards at <90 degrees abduction. Legs secured in padded yellow fins stirrups.
[2023-02-24] MEDS: BUPIVACAINE 0.5% (PF) 30 ML, EPINEPHrine 0.15 MG INJ (10:33)
[2023-02-24 11:21] VITALS: BP 100/63; PULSE 94; RESP 12; TEMP 36.3; O2SAT 100
--- NOTE | 2023-02-24 11:24 | PM.GYNOP.1 ---
Operative Date/Time/Diagnoses Date of procedure: 02/24/23 Time of procedure: 10:35 Pre-op diagnosis: Request for sterilization Menometrorrhagia Post-op diagnosis: same Procedure & Clinicians Procedure: Procedures Operation Date: 02/24/23 09:45 Actual Procedure Side Surgeon p Laparoscopic Salpingectomy Bilateral Tito Gardiner MD s Hysteroscopy, D&C, Endometrial Ablation (Novasure) Tito Gardiner MD Indications: Aydee Saul is a 22 year old s/p 10/2022 who is admitted for elective sterilization via laparoscopic bilateral salpingectomy. Patient's complaints also include intractible meneometrorrhagia and therefore will also be undergoing hysteroscopy with D&C and endometrial ablation. Surgeon: Tito Gardiner Anesthesia Type: General Operative Notes Findings: Normal endometrial cavity. The pelvis demonstrates normal-sized uterus which is retroverted. There is significant dilation of pelvic/ovarian vessels bilaterally with the left side slightly greater than the right. Both fallopian tubes appeared to be normal in their entirety as do the ovaries. The anterior and posterior cul-de-sacs are unremarkable without evidence of scarring or endometriosis. Appendix is visualized laparoscopically is normal as is the upper abdomen. Closure Type: primary Specimen(s): endometrial curettings and other (Endocervical curettings) Estimated blood loss (mL): 15 Blood products transfused: none Procedure in detail: With the patient under satisfactory general anesthesia in the modified dorsal lithotomy position, the perineum, vagina, and abdomen were prepped and draped for IUD removal and laparoscopic bilateral salpingectomy. A pre-surgical safety time-out was then taken in accordance with [facility] Main OR protocols. The umbilicus was then infiltrated with 0.5% Marcaine with epinephrine and 1 cm vertical incision was made in the inferior aspect of the umbilicus. Veress needle was used to insufflate the abdomen with carbon dioxide and once appropriately insufflated, 5 mm bladeless trocar and sleeve were inserted through the incision. Proper placement of the sleeve was confirmed with laparoscopic visualization and insufflation of the abdomen continued. A 2nd and 3rd 5 mm laparoscopic port were placed in the right and left mid quadrants using a similar technique and using a 3 puncture technique, the abdomen and pelvis were visualized with the findings as noted above. The distal aspect of the left fallopian tube was then grasped with a grasping forceps and using a Power Seal device, fimbria ovarica was coagulated and divided the dissection using the Power Seal continuing across the mesosalpinx to the cornua where the base fallopian tube was coagulated and divided. The left fallopian tube was then removed through one of the ports and submitted pathologic specimen. Attention was then turned to the right adnexa with distal tube grasped with a grasping forcep. The Power Seal device was then used to coagulate fimbria ovarica and the dissection was carried across the mesosalpinx to the cornua where the fallopian tube on the right side was amputated at the cornua following coagulation proximal tube the Power Seal device. Pelvis was inspected and there were no abnormalities noted following bilateral salpingectomy. The pneumoperitoneum was then vented and the ports removed from the abdominal wall. Port incisions were then closed with 4-0 Monocryl using inverted interrupted stitches and skin glue was applied. Appropriate dressings were then applied. A bivalve speculum was inserted in the vagina and the cervix visualized. The anterior lip of the cervix was grasped with a single-tooth tenaculum and the endocervical canal was then dilated to 6 mm diameter. Hysteroscope was placed through the endocervical canal into the endometrial cavity and the cavity was visualized. There were no localized abnormalities within the endometrial cavity and the endometrium itself was unremarkable. Both tubal ostia were visualized. The hysteroscope was then withdrawn and a fractional dilation and curettage was accomplished with separate pathologic specimen submitted for the endometrial and endocervical curettings. The uterine cavity was then sounded with the NovaSure device and found to be 5.5 cm in depth. The NovaSure device was then inserted through the endocervical canal into the endometrial cavity and the width of the cavity determined to be 3.5 cm. Cavity integrity test demonstrated the cavity to be intact and ablation was initiated. Ablation time was 36 seconds with power utilized 106 w. The NovaSure device was then removed from the endometrial cavity and hysteroscopy demonstrated excellent ablation effect. The tenaculum was then removed from the anterior lip of the cervix and no bleeding was encountered. The speculum was then removed from the vagina and the patient awakened from anesthesia. She was then transferred to the PACU for a period of observation and recovery having tolerated the procedure well. patient was awakened, and transferred to the PACU for a period of observation after having tolerated the procedure well. Complications: none Post-operative Condition: stable Disposition: PACU Plan for aftercare: Routine post-operative care. Follow-up in 2 weeks or as needed.
[2023-02-24 11:26] VITALS: BP 108/58; PULSE 100; RESP 15; O2SAT 100
[2023-02-24] MEDS: OXYCODONE IR 5 MG TABLET PO (11:26)
[2023-02-24] MEDS: ACETAMINOPHEN 325 MG TABLET 975 MG PO (11:26)
[2023-02-24 11:31] VITALS: BP 115/74; PULSE 95; RESP 13; O2SAT 100
[2023-02-24 11:36] VITALS: BP 125/59; PULSE 84; RESP 12; TEMP 36.2; O2SAT 99
[2023-02-24 11:55] VITALS: BP 114/64; PULSE 72; RESP 14; TEMP 36.4; O2SAT 100
== END 2023-02-24 12:07 | disposition home or self-care (01) ==
PROVIDERS: PCP Physician Assistant; Referring Provider Obstetrics & Gynecology; Visit Provider Obstetrics & Gynecology
PROC: 0UT74ZZ Resection of Bilateral Fallopian Tubes, Percutaneous Endoscopic Approach (ICD-10-PCS; CPT 58661; principal; 2023-02-24 09:45)
PROC: 0U5B8ZZ Destruction of Endometrium, Via Natural or Artificial Opening Endoscopic (ICD-10-PCS; CPT 58563; 2023-02-24 09:45)
DX: Z30.2 Encounter for sterilization (principal); N92.1 Excessive and frequent menstruation with irregular cycle; N71.1 Chronic inflammatory disease of uterus
CPT/HCPCS: 58661; 58563; 81025; J0171; J1100; J1885; J2250; J2704; J3010

== ENCOUNTER → 2023-03-20 10:26 | Outpatient (CLI) | payer OTHER, SELFPAY ==
[2023-03-21 13:41] LABS: Candida species Negative (Negative); Gardnerella vaginalis Positive (Negative); Trichomoas vaginalis Negative (Negative)
== END ==
PROVIDERS: PCP Physician Assistant; Visit Provider Obstetrics & Gynecology
DX: N89.8 Other specified noninflammatory disorders of vagina (principal)
CPT/HCPCS: 87480; 87510; 87660

== ENCOUNTER 2024-01-10 17:44 | Emergency (ER) | payer OTHER, SELFPAY ==
[2024-01-10 17:48] VITALS: BP 128/83; PULSE 99; RESP 14; TEMP 36.2; O2SAT 100; BMI 25.8
[2024-01-10] MEDS: ONDANSETRON 4 MG/2 ML INJ IV (17:57)
--- NOTE | 2024-01-10 18:52 | ED.HA ---
HPI - Headache General Chief Complaint: Headache Stated Complaint: Migraine, Numbness in extremities, N/V Time Seen by Provider: 01/10/24 18:51 Mode of arrival: Ambulatory History of Present Illness HPI Narrative: 23yoF with PMH migraine headaches presents with migraine headache. States that it was a similar headache to her usual migraines, but it was also associated with tingling and numbness in her fingers and toes. Took her home migraine medications without controlling the headache so she decided to present for evaluation. Also reported some pain in her right neck, however that has since subsided. Related Data Home Medications Medication Instructions Recorded Confirmed amitriptyline 25 mg tablet 25 mg PO DAILY 04/06/22 03/09/23 Previous Rx's Medication Instructions Recorded sumatriptan succinate 50 mg tablet See Rx Instructions PO .COMPLEX 04/19/22 #20 tabs omeprazole 40 mg capsule,delayed 40 mg PO DAILY #30 caps 08/18/22 release sertraline 50 mg tablet (Zoloft) 50 mg PO DAILY #30 tabs 08/18/22 acyclovir 400 mg tablet 400 mg PO TID 5 days #15 tabs 09/07/22 oxycodone 5 mg tablet 5 mg PO Q6H PRN pain #12 tabs 02/24/23 metronidazole 0.75 % (37.5 mg/5 1 appful vaginal BEDTIME #70 grams 03/21/23 gram) vaginal gel Allergies Allergy/AdvReac Type Severity Reaction Status Date / Time No Known Drug Allergies Allergy Verified 01/10/24 17:55 Patient History Medical History PTSD (post-traumatic stress disorder) (~2015) Depression (~2013) Ankle pain (~2011) Frequent UTI (~2013) HSV-1 infection ADHD Ovarian cyst (~2016) Panic attack Anxiety (~2013) Bipolar disorder 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 Migraine without aura (~2020) Surgical History Anesthesia [place] teeth extracted History of tonsillectomy and adenoidectomy (~2013) H/O dilation and curettage Family History Mother Pre-invasive breast cancer Family/Other Breast cancer Grandmother Breast cancer Grandfather Throat cancer Granddaughter Colon cancer Grandfather Hypertension Hyperlipidemia Heart disease Drug abuse Social History marital status: number of children: 1 household members: spouse and children lives independently: Yes caregiver/support person: Yes housing: house pets and animals: No education level: college (some college) occupational status: unemployed current occupational exposures/hazards: No special willis needs: No travel history: recent (Domestic only) seatbelt use: always water heater temp set < 120 deg: Yes working smoke detector in home: Yes fire extinguisher in home: Yes firearms in home: No do you feel safe at home: Yes Smoking Status: Current every day smoker Tobacco: How many years used: 4 second hand exposure: No alcohol intake: current substance use type: does not use during the past year weight has: remained stable well-balanced diet: rarely or never daily servings fruits/ve-1 caffeine: No Type(s) of exercise: none Smoking Status: Current every day smoker alcohol intake frequency: a few times a month Substance Use Type: does not use Exam Initial Vital Signs Initial Vital Signs: Vital Signs Temperature 97.1 F L 01/10/24 17:48 Pulse Rate 99 H 01/10/24 17:48 Respiratory Rate 14 01/10/24 17:48 Blood Pressure 128/83 01/10/24 17:48 Pulse Oximetry 100 01/10/24 17:48 Oxygen Delivery Method Room Air 01/10/24 17:48 Const: Awake, alert, nontoxic appearing Cardiac: regular rate, regular rhythm RESP: unlabored, clear bilaterally, no wheezing MSK neck: Atraumatic, full range of motion, pulses equal Skin: Warm, Dry, intact, no rashes Neuro: AO x3, CN II-XII grossly intact, moves all extremities Course Orders Ordered: Discontinued Medications Diphenhydramine HCl (Diphenhydramine 50 Mg/Ml Vial) 50 mg IV NOW ONE Stop: 01/10/24 18:53 Last Admin: 01/10/24 19:39 Dose: 50 mg Documented By: BOSSMANG Acetaminophen (Ofirmev) 1,000 mg in 100 mls @ 400 mls/hr IV NOW ONE Stop: 01/10/24 19:06 Last Infusion: 01/10/24 20:22 Dose: Infused Documented By: Admin: 01/10/24 19:39 Dose: 400 mls/hr Documented By: TERRY Sodium Chloride (Normal Saline 0.9%) 1,000 mls @ 1,000 mls/hr IV BOLUS ONE Stop: 01/10/24 19:51 Last Infusion: 01/10/24 20:53 Dose: 1,000 mls/hr Documented By: Infusion: 01/10/24 20:22 Dose: 1,000 mls/hr Documented By: Admin: 01/10/24 19:39 Dose: 1,000 mls/hr Documented By: TERRY Metoclopramide HCl (Metoclopramide 10 Mg/2 Ml Inj) 10 mg IV NOW ONE Stop: 01/10/24 18:53 Last Admin: 01/10/24 19:39 Dose: 10 mg Documented By: TERRY Ondansetron HCl (Ondansetron 4 Mg/2 Ml Inj) 4 mg IV NOW PRN PRN Reason: Nausea And Vomiting Last Admin: 01/10/24 17:57 Dose: 4 mg Documented By: PATRICIA Ondansetron HCl (Ondansetron 4 Mg Odt) 4 mg SL NOW PRN PRN Reason: Nausea And Vomiting Vital Signs Vital signs: Vital Signs - 8 hr 01/10/24 20:04 01/10/24 20:04 01/10/24 20:30 Temperature Pulse Rate 91 H 58 L Respiratory Rate Blood Pressure 108/63 Pulse Oximetry 81 L 99 Oxygen Delivery Method 01/10/24 20:30 01/10/24 21:04 Temperature 98.4 F Pulse Rate 75 Respiratory Rate 18 Blood Pressure 118/64 110/65 Pulse Oximetry 99 Oxygen Delivery Method Room Air MDM - Headache Lab Data Labs: Urine Dip Bedside Urine Glucose Negative Bedside Urine Bilirubin - Negative Bedside Urine Ketone - Negative Urine Specific [place] 1.010 Bedside Urine Occult Blood - Negative Bedside Urine pH 6.5 Bedside Urine Protein - Negative Bedside Urine Urobilinogen - Negative Bedside Urine Nitrite - Negative Bedside Urine Leukocytes - Negative Esterase MDM Narrative Medical decision making narrative: Migraine headache similar to previous, however now with some numbness chest tingling in her fingers and toes. No focal neurologic deficit. Patient has full range of motion of her head and neck, no Brudzinski or Kernig signs. Since this is otherwise a similarly pattern migraine to previous, no indication for CT imaging at this time. Patient received migraine cocktail with significant improvement in symptoms. Patient states that she was still has a mild residual headache, but she says that she can go home and sleep it off and should be fine tomorrow. Patient counseled to follow up as needed with her neurologist. Discharge Plan Departure Patient Disposition: Home Clinical Impression: Migraine Instructions: DI for Migraine Activity Restrictions/Additional Instructions: Follow up with your neurologist if you have more frequent migraines. Stay hydrated and get plenty of rest. Prescriptions: No Action sumatriptan succinate 50 mg tablet See Rx Instructions PO .COMPLEX Qty: 20 3RF Rx Instructions: take 1 tab at onset of headache; if no relief may repeat 1 tab after at least 2 hrs; max = 4 tabs/24 hr PO omeprazole 40 mg capsule,delayed release(DR/EC) 40 mg PO DAILY Qty: 30 3RF sertraline [Zoloft] 50 mg tablet 50 mg PO DAILY Qty: 30 12RF acyclovir 400 mg tablet 400 mg PO TID 5 Days Qty: 15 6RF metronidazole 0.75 % (37.5mg/5 gram) gel 1 appful vaginal BEDTIME Qty: 70 0RF amitriptyline 25 mg tablet 25 mg PO DAILY oxycodone 5 mg tablet 5 mg PO Q6H PRN (Reason: pain) Qty: 12 0RF Referrals: Pardeep Vines PA-C [Primary Care Provider] - Stand Alone Forms: Patient Portal/API
[2024-01-10] MEDS: SODIUM CHLORIDE 0.9% 1,000 ML 1000 ML IV (19:39)
[2024-01-10] MEDS: diphenhydrAMINE 50 MG/ML VIAL IV (19:39)
[2024-01-10] MEDS: METOCLOPRAMIDE 10 MG/2 ML INJ IV (19:39)
[2024-01-10] MEDS: ACETAMINOPHEN IV 1,000 MG/100 ML VIAL 400 MG IV (19:39)
[2024-01-10 20:04] VITALS: BP 108/63; PULSE 91; O2SAT 81
[2024-01-10 20:30] VITALS: BP 118/64; PULSE 58; O2SAT 99
--- NOTE | 2024-01-10 20:58 | PC.NURSE ---
Pt reports feeling better. 7/10 pain down from 8-9.
[2024-01-10 21:04] VITALS: BP 110/65; PULSE 75; RESP 18; TEMP 36.9; O2SAT 99
== END 2024-01-10 21:06 | disposition home or self-care (01) ==
PROVIDERS: Emergency Provider Emergency Medicine; PCP Physician Assistant
DX: G43.909 Migraine, unspecified, not intractable, without status migrainosus (principal); R20.0 Anesthesia of skin
CPT/HCPCS: 36415; 81003; 96365; 96375; 99284; J0136; J1200; J2405; J2765